=== PATIENT | female | born 1935 | race Caucasian/White ===

== ENCOUNTER 2020-07-12 02:37 | Emergency (ER) | payer MEDICARE, MEDICAID ==
[~2020-07-12] VITALS: Ht 172.2 cm; Wt 72.5 kg
[~2020-07-12 02:37] MED LIST: ASPI-824 PO; CALC300T4 PO; DIPH25CA48 PO; GLMP2T PO; INSN1U SQ; INSU100I53 SQ; LORA10TA76 PO; MEMA5TAB43 PO; MIRT-96 PO; NYST60PO TOP; PANT20TA2 PO; RPN.25T PO; VENL150C98 PO; VENL75CA93 PO; [UNRECOGNIZED DRUG - CODE] PO; [UNRECOGNIZED DRUG - OTHER] PO
--- NOTE | 2020-07-12 02:50 | ED Hip Pain/Injury ---
General Chief Complaint: Hip/Pelvic Problems Stated Complaint: FALL,RT HIP PAIN History of Present Illness Date Seen by Provider: Jul 12, 2020 Time Seen by Provider: 02:43 Initial Comments 84-year-old female presents via EMS from the residential with complaint of right hip pain. Staff stated that she fell around 8 p.m. last night and was up walking around, given a Motrin for pain, but she was becoming more uncomfortable. Not given any pain medicine en route and no gross deformity noted by EMS. Denies any other pain or injury. No history of any right or left hip problems Allergies and Home Medications Allergies Coded Allergies: Penicillins (Unverified Adverse Reaction, Unknown, 05/10/20) [facility] MAR Sulfa (Sulfonamide Antibiotics) (Unverified Adverse Reaction, Unknown, 05/10/20) [facility] Home Medications Aspirin 81 Mg Tablet.dr, 81 MG PO DAILY, (Reported) Ca/D3/Mag Ox/Zinc/Utility Plant Operative/Robert/Bor 1 Each Tab.chew, 1 EA PO DAILY, (Reported) Calcium Carbonate 300 Mg Tab.chew, 300 MG PO Q6H PRN for INDIGESTION, (Reported) Diphenhydramine HCl 25 Mg Capsule, 25 MG PO HS PRN for INSOMNIA, (Reported) GIVE WITH NAPROXEN Insulin NPH Human Isophane 100 Unit/1 Ml Insuln.pen, 30 UNITS SQ BID Prescribed by: DAVIS NELSON on 05/14/20 1003 Loratadine 10 Mg Tablet, 10 MG PO DAILY, (Reported) Memantine HCl 5 Mg Tablet, 5 MG PO BID, (Reported) Mirtazapine 15 Mg Tablet, 15 MG PO HS, (Reported) Naproxen Sodium 220 Mg Tablet, 220 MG PO HS PRN for INSOMNIA, (Reported) GIVE WITH DIPHENHYDRAMINE Nystatin 60 Gm Powder, 1 APPLIC TOP BID PRN for GAULDING, (Reported) Pantoprazole Sodium 20 Mg Tablet.dr, 20 MG PO DAILY, (Reported) Ropinirole HCl 0.25 Mg Tab, 0.5 MG PO HS, (Reported) Venlafaxine HCl 150 Mg Cap.er.24h, 150 MG PO DAILY, (Reported) Patient Home Medication List Home Medication List Reviewed: Yes Review of Systems Constitutional: No chills, No fever, No malaise, No weakness Respiratory: No cough, No short of breath Cardiovascular: No chest pain, No edema, No palpitations Gastrointestinal: No abdominal pain, No nausea, No vomiting Musculoskeletal: back pain (low back), joint pain (R hip) Skin: No change in color, No rash Past Mauotxv-Svmhej-Wlneoa Hx Past Med/Social Hx: Reviewed Nursing Past Med/Soc Hx Patient Social History Recent Foreign Travel: No Contact w/Someone Who Travel: No Recent Hopitalizations: No Seasonal Allergies Seasonal Allergies: Yes Past Medical History Respiratory: No Cardiac: No Neurological: Yes (recent RX- Memantine) Dementia Genitourinary: No Gastrointestinal: Yes Gastroesophageal Reflux Musculoskeletal: No Endocrine: Yes (DM Type II) Diabetes, Insulin dep, Diabetes, Non-Insulin dep HEENT: No Cancer: No Psychosocial: Yes (Recent RX- Remeron) Anxiety, Depression Integumentary: No Blood Disorders: No Physical Exam Vital Signs Capillary Refill : Height, Weight, BMI Height: '" Weight: lbs. oz. kg; 23.30 BMI Method: General Appearance: No Apparent Distress, WD/WN Cardiovascular: Regular Rate, Rhythm, No Edema, No Gallop, No JVD Respiratory: Chest Non Tender, Lungs Clear, Normal Breath Sounds Gastrointestinal: Non Tender, Soft Extremity: Normal Capillary Refill, Normal Inspection, No Calf Tenderness; No Calf Tenderness, No Pedal Edema; Pelvis Stable (generalized R post hip and pelvic pain - minor. No gross deformity or abnl of RLE) Neurologic/Psychiatric: Alert, No Motor/Sensory Deficits, Normal Mood/Affect Skin: Normal Color, Warm/Dry Progress/Results/Core Measures Results/Orders My Orders Orders - GARTH PANDA DO Pelvis With Right Hip 2-3 View (07/12/20 02:44) Diagnostic Imaging Diagonstic Imaging: Xray Plain Films/CT/US/NM/MRI: pelvis, hip (R) Comments No fracture seen. Degen changes Reviewed: Reviewed by Me Departure Impression Primary Impression: Contusion of hip Qualified Codes: S70.01XA - Contusion of right hip, initial encounter Disposition: HOME, SELF-CARE (residential) Condition: Stable Departure-Patient Inst. Decision time for Depature: 03:09 Referrals: SELF,TALA REYNOLDS (PCP) Primary Care Physician PAWEL GARCIA PSYD (Family) Primary Care Physician Patient Instructions: Contusion (DC) Add. Discharge Instructions: Follow up with your Primary Doctor in 5 to 7 days if you are having any further pain related to this fall. All discharge instructions reviewed with patient and/or family. Voiced understanding. GARTH PANDA DO Jul 12, 2020 02:50
[2020-07-12 04:04] VITALS: BP 120/81
--- NOTE | 2020-07-12 06:47 | Diagnostic Imaging Report ---
INDICATION: Fall right hip pain. COMPARISON: None. FINDINGS: Single view pelvis, 2 views right hip demonstrate no fracture or dislocation. Degenerative joint disease is present. There is no osseous lesion. IMPRESSION: No fracture identified. Dictated by: Dictated on workstation # [id number]
== END 2020-07-12 04:04 | disposition home or self-care (01) ==
LOC: EDUNIT# 02:37 → ER FS 02:39
DX: S70.01XA Contusion of right hip, initial encounter (principal); K21.9 Gastro-esophageal reflux disease without esophagitis; E11.9 Type 2 diabetes mellitus without complications; F41.9 Anxiety disorder, unspecified; F32.9 Major depressive disorder, single episode, unspecified; F03.90 Unspecified dementia, unspecified severity, without behavioral disturbance, psychotic disturbance, mood disturbance, and anxiety; Z88.0 Allergy status to penicillin; Z88.2 Allergy status to sulfonamides; Z79.82 Long term (current) use of aspirin; Z79.4 Long term (current) use of insulin; W19.XXXA Unspecified fall, initial encounter
CPT/HCPCS: 73502